=== PATIENT | female | born 1995 | race Caucasian/White ===

== ENCOUNTER 2019-10-26 23:59 | Emergency (ER) | payer SELFPAY ==
[2019-10-27] MEDS ORDERED: Meclizine HCl 25 MG TAB ONE (00:19)
[2019-10-27] MEDS ORDERED: Ondansetron ODT 8 MG TAB ONE (00:19)
[2019-10-27 01:12] LABS: Bilirubin Negative (Negative); Blood, Urine Negative (Negative); Clarity Clear (Clear); Glucose, Urine (Dipstick) Normal (Negative); Leukocyte Negative Leu/uL (Negative); Nitrite Negative (Negative); Protein, Urine (Dipstick) 20 mg/dL (Neg-Trace); Urobilinogen 3 mg/dL (Less than 2)
[2019-10-27 01:35] LABS: Pregnancy Test - Urine (BHCG) Negative (Negative); Pregu Control Background? CLEAR/WHITE (CLR/WHITE); Pregu Control Bar Appear? YES (CONTROL BAR); Specific Gravity 1.038 (1.002-1.036)
--- NOTE | 2019-10-29 09:22 | EKG ---
Test Reason : Blood Pressure : / mmHG Vent. Rate : 064 BPM Atrial Rate : 064 BPM P-R Int : 168 ms QRS Dur : 090 ms QT Int : 400 ms P-R-T Axes : 050 021 044 degrees QTc Int : 412 ms Normal sinus rhythm with sinus arrhythmia Normal ECG Confirmed by LILI WOODRUFF ([id number]), editor newspaper JANETH OLSON ([id number]) on 10/29/2019 9:22:05 AM Referred By: Confirmed By:LILI WOODRUFF
== END 2019-10-27 01:45 | disposition home or self-care (01) ==
LOC: ERS 23:59
DX: R42 Dizziness and giddiness (principal); F17.210 Nicotine dependence, cigarettes, uncomplicated
CPT/HCPCS: 81003; 81025; 93005; Q0162

== ENCOUNTER 2020-05-31 01:19 | Emergency (ER) | payer SELFPAY ==
[2020-05-31] MEDS ORDERED: Lorazepam 2 MG/ML VIAL ONE (01:41)
[2020-05-31] MEDS ORDERED: Morphine 4 MG/ML VIAL ONE (01:59)
[2020-05-31] MEDS ORDERED: Ondansetron PF 4 MG/2 ML Vial ONE (01:59)
[2020-05-31 02:11] LABS: #Basophils 0.1 thou/uL (0.0-0.2); #Eosinphils 0.5 thou/uL (0.0-0.7); #Monocytes 0.7 thou/uL (0.11-0.59); #Neutrophils 5.9 thou/uL (1.40-6.50); %Basophils 0.9 % (0.0-1.0); %Eosinophils 4.6 % (0.0-10.0); %Lymphocytes 35.4 % (21.0-51.0); %Monocytes 6.1 % (0.0-10.0); %Neutrophils 53.1 % (42.0-75.0); Hemoglobin 13.4 g/dL (12.0-16.0); Mean Corpuscular HGB CONC 34.5 g/dL (32.0-36.0); Mean Corpuscular Hemoglobin 31.4 pg (27.0-31.0); Mean Corpuscular Volume 90.9 fL (78.0-98.0); Mean Platelet Volume 8.1 fL (7.4-10.4); Platelet Count 170 thou/uL (130-400); RBC Distribution Width 13.2 % (11.5-14.5); Red Blood Cell (RBC) Count 4.27 mill/uL (4.20-5.40); White Blood Cell (WBC) Count 11.2 thou/uL (4.8-10.8)
[2020-05-31 02:15] LABS: Bilirubin Negative (Negative); Blood, Urine Negative (Negative); Clarity Clear (Clear); Glucose, Urine (Dipstick) Normal (Negative); Ketone, Urine Negative (Negative); Leukocyte 75 Leu/uL (Negative); Nitrite Negative (Negative); Protein, Urine (Dipstick) Negative (Neg-Trace); RBC/HPF 0-3 HPF (0-3); Specific Gravity, Urine 1.009 (1.002-1.036); Urobilinogen Normal mg/dL (Less than 2); WBC/HPF 0-3 HPF (0-3)
[2020-05-31 02:16] LABS: Bacteria/HPF 1+ HPF (None Seen)
[2020-05-31 02:25] LABS: ALT (SGPT) Less than 7 U/L (8-55); AST (SGOT) 15 U/L (5-34); Albumin 3.5 g/dL (3.5-5.0); Alkaline Phosphatase 43 U/L (40-110); Anion Gap 10 mmol/L (10-20); BUN (Urea Nitrogen) 12 mg/dL (7.0-18.7); Bilirubin, Total 0.2 mg/dL (0.2-1.2); Calc. Creatinine Clearance 0 mL/min (70-130); Calcium 8.8 mg/dL (7.8-10.44); Carbon Dioxide 24 mmol/L (22-29); Chloride 103 mmol/L (98-107); Estimated GFR-MDRD Greater than 90; Globulin 2.7 g/dL (2.4-3.5); Glucose 82 mg/dL (70-105); Lipase 27 U/L (8-78); Potassium 3.4 mmol/L (3.5-5.1); Protein, Total 6.2 g/dL (6.0-8.3); Sodium 134 mmol/L (136-145)
--- NOTE | 2020-05-31 08:06 | ULT ---
PRELIMINARY REPORT/[facility]/EMERGENCY AFTER HOURS PROCEDURE: EXAM: US Obstetrical, Complete <14 weeks CLINICAL HISTORY: Periumbilical pain, with HCG 11406 TECHNIQUE: Transabdominal imaging of the maternal pelvis and a <14 week gestation with image documentation. COMPARISON: None provided. FINDINGS: GESTATION: A single live intrauterine gestation is noted with a CRL of 4.6 cm corresponding to 11 weeks 3 days a nd demonstrating a heartbeat of 162 bpm UTERUS: A 4.1 x 4.6 x 4.6 cm fibroid is noted. CERVIX: Closed. Unremarkable. OVARIES: Unremarkable. No mass. FREE FLUID: No free fluid. The periumbilical region demonstrates peristalsing bowel with no focal abnormality. The appendix was not visualized in the RIGHT lower quadrant. IMPRESSION: Single viable intrauterine . No acute abnormality. ELECTRONICALLY SIGNED BY: Estuardo Cardona MD May 31, 2020 4:28:02 AM [employer] This report is intended for review by the ordering physician only, in accordance of law. If you recei ve this report in error, please call [facility] at [phone]. FINAL REPORT EMERGENT AFTER HOURS OB ULTRASOUND: FINDINGS/IMPRESSION: I agree with the findings and impression given in the preliminary report per [facility] physici an. 1. There is a single live intrauterine with estimated age of 11 weeks 3 days. 2. Possible uterine fibroid. POS: DONELLA
== END 2020-05-31 04:50 | disposition home or self-care (01) ==
LOC: ERS 01:19
DX: O99.611 Diseases of the digestive system complicating pregnancy, first trimester (principal); K43.9 Ventral hernia without obstruction or gangrene; O99.331 Smoking (tobacco) complicating pregnancy, first trimester; F17.210 Nicotine dependence, cigarettes, uncomplicated; Z3A.10 10 weeks gestation of pregnancy
CPT/HCPCS: 76856; 80053; 81003; 81015; 83690; 84702; 85025; 93976; 94760; 96374; 96375; J2060; J2270; J2405